=== PATIENT | male | born 1935 | race Hispanic/Latino ===

== ENCOUNTER 2017-11-16 05:53 | Day surgery (SDC) | payer OTHER ==
[~2017-11-16] VITALS: Ht 177.8 cm; Wt 113.9 kg
[~2017-11-16 05:53] MED LIST: ATOR40TA71 PO; CARV12.511 PO; CLOP75TA32 PO; FERR-82 PO; FURO40TA5 PO; LISI1TAB11 PO; PANT40TA25 PO; ROSU40TA20 PO; TAMS0.4C32 PO
[2017-11-16 07:15] VITALS: BP 121/64
[2017-11-16] MEDS ORDERED: SODIUM CHLORIDE 0.9% 1000ML 1,000 ML IV ONE (07:40)
[2017-11-16] MEDS ORDERED: PROPOFOL 10 MG/ML 20ML VIAL IV ONE ×2 (08:00→08:26)
[2017-11-16] MEDS ORDERED: PHENYLEPHRINE HCL 10 MG/ML 1ML VIAL IV ONE (08:38)
[2017-11-16] MEDS ORDERED: SODIUM CHLORIDE 0.9% 10 ML VIAL ONE (08:39)
[2017-11-16 08:40] VITALS: BP 109/57
[2017-11-16 08:45] VITALS: BP 96/55
[2017-11-16 08:50] VITALS: BP 94/59
[2017-11-16 08:55] VITALS: BP 98/63
[2017-11-16 09:02] VITALS: BP 119/65
== END 2017-11-16 09:28 | disposition home or self-care (01) ==
LOC: DAH 05:53
PROVIDERS: ATTEND Internal Medicine
DX: K31.89 Other diseases of stomach and duodenum (principal); D49.0 Neoplasm of unspecified behavior of digestive system; I10 Essential (primary) hypertension; K64.9 Unspecified hemorrhoids; M81.0 Age-related osteoporosis without current pathological fracture; M19.90 Unspecified osteoarthritis, unspecified site; K59.01 Slow transit constipation; E78.49 Other hyperlipidemia; I67.89 Other cerebrovascular disease; Z79.899 Other long term (current) drug therapy; Z98.890 Other specified postprocedural states; Z79.01 Long term (current) use of anticoagulants
CPT/HCPCS: 43238; 88173; 88305; 93005; A4215; A4606; J2370; J2704 ×2; J7030; 43232